=== PATIENT | female | born 1940 | race Caucasian/White ===

== ENCOUNTER → 2020-05-20 | Outpatient (CLI) | payer MEDICARE ==
--- NOTE | 2020-05-20 10:30 | RAD ---
EXAM: WRIST 3V RIGHT 05/20/2020 12:00 AM CLINICAL INDICATION:Fell this morning, injured right wrist COMPARISON:None TECHNIQUE:3 views of the right wrist FINDINGS:The bones are diffusely demineralized. There is a suspected minimally displaced fracture of the distal radial metaphysis along the posterior cortex, seen only on lateral view. No definite intra-articular extension. Alignment is normal. There is moderate joint space narrowing with subchondral sclerosis and large osteophytes at the first CMC joint. Mild dorsal soft tissue swelling. IMPRESSION: 1. Minimally displaced distal radial metaphyseal fracture along the posterior cortex. 2. Osteopenia. 3. Severe degenerative joint disease at the first CMC joint. Electronically signed by: Rani Carvalho MD (05/20/2020 10:27 AM) [id number]
== END ==
LOC: DXRAD 09:57
PROVIDERS: ATTEND Internal Medicine
DX: S59.201A Unspecified physeal fracture of lower end of radius, right arm, initial encounter for closed fracture (principal); M85.88 Other specified disorders of bone density and structure, other site; M18.9 Osteoarthritis of first carpometacarpal joint, unspecified; X58.XXXA Exposure to other specified factors, initial encounter; Y93.89 Activity, other specified; Y92.89 Other specified places as the place of occurrence of the external cause; Y99.8 Other external cause status
CPT/HCPCS: 73110

== ENCOUNTER 2021-04-29 17:40 | Emergency (ER) | payer MEDICARE ==
[~2021-04-29] VITALS: Ht 160 cm; Wt 54.0 kg
--- NOTE | 2021-04-29 18:01 | PHYS DOC ---
Past History Past Medical History: Arthritis, CVA, Hypertension, TIA General Adult EDM: Chief Complaint: NEURO SYMPTOMS/DEFICITS HPI: HPI: .. I don't know.. maybe I was a little off this morning when I got up.. But I am fine now....but my daughter said I should come tonight and get checked.. Patient is a 80 year old female who presents with above hx and complaints altered mental status. Patient pt. was at baseline yesterday was normal about 1800. When daughter checked on her today at about 1700hrs. felt her face was a little a symmetrical and may be speech off a "little bit". On arrival to the emergency department patient was asymptomatic. Patient does have significant history of previous TIAs and CVAs. Has had falls in the past. Patient did appear to have accelerated hypertension range of 215 / 100s. Patient denies any recent changes in meds. Does have some baseline dementia/Alzheimer's. She still lives independently. Patient normally follows with Dr. Reyna. There is some history patient is somewhat noncompliant of her hypertensive meds either by intention or forgetting to take them. Patient does have a history of some falls. Review of Systems: Review of Systems: Constitutional: Denies fever or chills Eyes: Denies change in visual acuity HENT: Denies nasal congestion or sore throat Respiratory: Denies cough or shortness of breath Cardiovascular: Denies chest pain or edema GI: Denies abdominal pain, nausea, vomiting, bloody stools or diarrhea : Denies dysuria Musculoskeletal: Denies back pain or joint pain Integument: Denies rash Neurologic: Denies headache, focal weakness or sensory changes Endocrine: Denies polyuria or polydipsia Lymphatic: Denies swollen glands Psychiatric: Denies depression or anxiety Family History: Family History: Noncontributory Current Medications: Current Meds: See nursing for home meds Allergies: Allergies: No known drug allergies Physical Exam: PE: Constitutional: no acute distress, non-toxic appearance. [] HENT: Normocephalic, atraumatic, bilateral external ears normal, oropharynx moist, no oral exudates, nose normal. [] Eyes: PERRLA, EOMI, conjunctiva normal, no discharge. [] Neck: Normal range of motion, no tenderness, supple, no stridor. [] Cardiovascular:Heart rate regular rhythm, no murmur. PMI to the left Lungs & Thorax: Bilateral breath sounds equal apex auscultation [] Abdomen: Bowel sounds normal, soft, no tenderness, no masses, no pulsatile masses. [] Skin: Warm, dry, no erythema, no rash. [] Back: No tenderness, no CVA tenderness. [] Extremities: No tenderness, no cyanosis, no clubbing, ROM intact, no edema. Arthritic changes Neurologic: Alert and oriented X 3, moves all extremities on request, has distal sensory, no focal deficits noted. Patient states she is at baseline. Daughter states she is at baseline. DTRs +2 patella and brachial. Action Installer equal. No drift. Psychologic: Affect normal, judgement normal, mood normal. [] EKG: EKG: My interpretation EKG shows a sinus rhythm at 76 bpm. Leftward axis. But no findings acute STEMI or contralateral changes [] Radiology/Procedures: Radiology/Procedures: [address] [address] IMAGING REPORT Signed PATIENT: DAVID KUNZ ACCOUNT: [id number] : 1940 LOCATION: ER AGE: 80 SEX: F EXAM STATUS: REG ER ORD. PHYSICIAN: LATASHA RUTHERFORD MD REASON: dyspnea PROCEDURE: CHEST PA & LATERAL XR CHEST 2V CLINICAL INDICATIONS: Dyspnea COMPARISON: None available. Findings: No acute lung infiltrate or pleural effusion or pulmonary edema or lung mass or pneumothorax is seen. The heart size, pulmonary vasculature, mediastinum and both kim are unremarkable. IMPRESSION: No acute radiographic abnormality is seen. Electronically signed by: Mervat Orozco MD (04/29/2021 7:34 PM) [id number] DICTATED AND SIGNED BY: MERVAT OROZCO MD DATE: 04/29/211932 CC: LATASHA RUTHERFORD MD; RAJ REYNA ~MTH0 0 [[address] [address] IMAGING REPORT Signed PATIENT: DAVID KUNZ ACCOUNT: [id number] : 1940 LOCATION: ER AGE: 80 SEX: F EXAM STATUS: REG ER ORD. PHYSICIAN: LATASHA RUTHERFORD MD REASON: mental status change, falls, nl yesterday 1830 hrs. PROCEDURE: CT HEAD AND CERVICAL SPINE WO CT Head W/O Contrast: History: Reason: mental status change, falls, nl yesterday 1830 hrs. / Spl. Instructions: / History: Comparison: none Axial images were obtained without contrast. The 2 mm density along the interhemispheric fissure on the left is consistent with an acute posterior parafalcine subdural hematoma. There is marked diffuse atrophy. There is no mass effect or hydrocephalus. There is an old lacunar infarct in the right basal ganglia. Mild, patchy periv entricular and subcortical white matter hypoattenuation is seen. There is no focal loss of andrade-white matter distinction to suggest acute ischemia, i.e. stroke. Impression: 1. Small posterior acute subdural hematoma. No mass effect. 3. Marked atrophy and mild chronic white matter changes and old periventricular infarct on the right. End impression CT C-Spine without contrast: Clinical History: Reason: mental status change, falls, nl yesterday 1830 hrs. / Spl. Instructions: / History: Technique: Axial helical images of the cervical spine were obtained without contrast, axial coronal and sagittal reconstruction was performed. Findings: There is no loss of vertebral body stature. There is no prevertebral soft tissue swelling. There is minimal degenerative retrolisthesis of C2 on C3 and C3 on C4 and grade 1 anterolisthesis of C4 on C5. The C1-C2 relationship is normal. The visualized osseous structures appear normal. Evaluation central canal is limited without contrast. There is diffuse disc osteophytic ridges and hypertrophy of the facets resulting in flattening of the thecal sac at multiple levels. There does not appear to be gross flattening cord. There is moderate narrowing of multiple neuroforamen. Impression: Marked chronic degenerative changes of the cervical spine with multilevel central and neuroforaminal stenosis. No acute findings. Clinical correlation s uggested. See CT head without contrast. End impression PQRS Compliance Statement: One or more of the following individualized dose reduction techniques were utilized for this examination: 1. Automated exposure control 2. Adjustment of the mA and/or kV according to patient size 3. Use of iterative reconstruction technique Electronically signed by: Johana Rubi III, MD (04/29/2021 7:16 PM) [facility] DICTATED AND SIGNED BY: JOHANA RUBI III, MD DATE: 04/29/211904 CC: LATASHA RUTHERFORD MD; RAJ REYNA ~MTH0 0 ][place] [address] IMAGING REPORT Signed PATIENT: DAVID KUNZ ACCOUNT: [id number] : 1940 LOCATION: ER AGE: 80 SEX: F EXAM STATUS: REG ER ORD. PHYSICIAN: LATASHA RUTHERFORD MD REASON: mental status change, falls, nl yesterday 1830 hrs. PROCEDURE: CT HEAD AND CERVICAL SPINE WO CT Head W/O Contrast: History: Reason: mental status change, falls, nl yesterday 1830 hrs. / Spl. Instructions: / History: Comparison: none Axial images were obtained without contrast. The 2 mm density along the interhemispheric fissure on the left is consistent with an acute posterior parafalcine subdural hematoma. There is marked diffuse atrophy. There is no mass effect or hydrocephalus. There is an old lacunar infarct in the right basal ganglia. Mild, patchy periventricular and subcortical white matter hypoattenuation is seen. There is no focal loss of andrade-white matter distinction to suggest acute ischemia, i.e. stroke. Impression: 1. Small posterior acute subdural hematoma. No mass effect. 3. Marked atrophy and mild chronic white matter changes and old periventricular infarct on the right. End impression CT C-Spine without contrast: Clinical History: Reason: mental status change, falls, nl yesterday 1830 hrs. / Spl. Instructions: / History: Technique: Axial helical images of the cervical spine were obtained without contrast, axial coronal and sagittal reconstruction was performed. Findings: There is no loss of vertebral body stature. There is no prevertebral soft tissue swelling. There is minimal degenerative retrolisthesis of C2 on C3 and C3 on C4 and grade 1 anterolisthesis of C4 on C5. The C1-C2 relationship is normal. The visualized osseous structures appear normal. Evaluation central canal is limited without contrast. There is diffuse disc osteophytic ridges and hypertrophy of the facets resulting in flattening of the thecal sac at multiple levels. There does not appear to be gross flattening cord. There is moderate narrowing of multiple neuroforamen. Impression: Marked chronic degenerative changes of the cervical spine with multilevel central and neuroforaminal stenosis. No acute findings. Clinical correlation suggested. See CT head without contrast. End impression PQRS Compliance Statement: One or more of the following individualized dose reduction techniques were utilized for this examination: 1. Automated exposure control 2. Adjustment of the mA and/or kV according to patient size 3. Use of iterative reconstruction technique Electronically signed by: Johana Rubi III, MD (04/29/2021 7:16 PM) [facility] DICTATED AND SIGNED BY: JOHANA RUBI III, MD DATE: 04/29/211904 CC: LATASHA RUTHERFORD MD; RAJ REYNA ~MTH0 0 Heart Score: C/O Chest Pain: N/A HEART Score for Chest Pain: HEART Score for Chest Pain Response (Comments) Value History Slighlty/Non-Suspicious 0 ECG Normal 0 Age > 65 2 Risk Factors 1 or 2 Risk Factors 1 Troponin < Normal Limit 0 Total 3 Risk Factors: Risk Factors: DM, Current or recent (<one month) smoker, HTN, HLP, family history of CAD, obesity. Risk Scores: Score 0 - 3: 2.5% MACE over next 6 weeks - Discharge Home Score 4 - 6: 20.3% MACE over next 6 weeks - Admit for Clinical Observation Score 7 - 10: 72.7% MACE over next 6 weeks - Early Invasive Strategies Course & Med Decision Making: Course & Med Decision Making Pertinent Labs and Imaging studies reviewed. (See chart for details) Initially daughter insistent patient [facility] only [facility]. [facility] Called back at 1945 hrs. advised unable to accept this pt. at this time. Neurology review of films suggested pt be admitted to a neuro telemetry at our facility and consider MRI in the morning. Control blood pressure. Patient did not require neurosurgery for acute intervention . Primay invention at this time would be medical stabilization of blood pressure. If a room became available they would accept.. After some time in the emergency department daughter and patient requested to be admitted at [facility]. Patient is case discussed with . Will transfer to [facility] - neuro. Possible MRI in am. Impression: 1. Hx of alter mental status since 1800 yesterday 2. Hx of falls 3. Hx.of Dementia 4. Accelerated Hypertension ( Hx. non compliance with meds) 5. Small posterior acute subdural hematoma- - no mass effect 6. Marked atrophy and white mater changes. [] Dragon Disclaimer: Dragkeven Disclaimer: This electronic medical record was generated, in whole or in part, using a voice recognition dictation system. Departure Departure: Referrals: RAJ REYNA (PCP) Saritha Disclaimer This chart was dictated in whole or in part using Voice Recognition software in a busy, high-work load, and often noisy Emergency Department environment. It may contain unintended and wholly unrecognized errors or omissions. LATASHA RUTHERFORD MD April 29, 2021 18:01
--- NOTE | 2021-04-29 18:17 | EKG ---
[address] [address] Test Date: 2021-04-29 Test Time: 18:10:45 Pat Name: DAVID KUNZ Department: Room: Gender: F Fiction Writer: ALETA : 1940 Requested By: LATASHA RUTHERFORD Order Number: [id number] Reading MD: Christopher Gardiner Measurements Intervals [place] Rate: 76 P: 47 DC: 206 QRS: -23 QRSD: 78 T: 42 QT: 394 QTc: 448 Interpretive Statements SINUS RHYTHM LEFTWARD AXIS Electronically Signed On 05-02-2021 15:28:58 CDT by Christopher Gardiner
[2021-04-29 18:40] LABS: CALCIUM 8.7 mg/dL (8.5-10.1); CREATININE 0.9 mg/dL (0.6-1.0); GFR 60.1; POTASSIUM 3.9 mmol/L (3.5-5.1)
[2021-04-29 18:50] LABS: BASO % 1 % (0-3); EOS # 0.1 x10^3/uL (0.0-0.7); EOS % 2 % (0-3); HEMATOCRIT 35.7 % (36.0-47.0); HEMOGLOBIN 11.9 g/dL (12.0-15.5); LYMPH # 2.6 x10^3/uL (1.0-4.8); LYMPH % 42 % (24-48); MEAN CORPUSCULAR HEMOGLOBIN 32 pg (25-35); MEAN CORPUSCULAR HGB CONC 33 g/dL (31-37); MEAN CORPUSCULAR VOLUME 97 fL (79-100); MONO # 0.5 x10^3/uL (0.0-1.1); MONO % 7 % (0-9); NEUT % 48 % (31-73); PLATELET COUNT 173 x10^3/uL (140-400); RED CELL DISTRIBUTION WIDTH 12.8 % (11.5-14.5); WHITE BLOOD COUNT 6.2 x10^3/uL (4.0-11.0)
[2021-04-29 18:54] LABS: MAGNESIUM 2.2 mg/dL (1.8-2.4)
--- NOTE | 2021-04-29 19:18 | RAD ---
CT Head W/O Contrast: History: Reason: mental status change, falls, nl yesterday 1830 hrs. / Spl. Instructions: / Histor y: Comparison: none Axial images were obtained without contrast. The 2 mm density along the interhemispheric fissure on the left is consistent with an acute posterior parafalcine subdural hematoma. There is marked diffuse atrophy. There is no mass effect or hydrocephalus. There is an old lacunar i nfarct in the right basal ganglia. Mild, patchy periventricular and subcortical white matter hypoatte nuation is seen. There is no focal loss of andrade-white matter distinction to suggest acute ischemia, i.e. stroke. Impression: 1. Small posterior acute subdural hematoma. No mass effect. 3. Marked atrophy and mild chronic white matter changes and old periventricular infarct on the right. End impression CT C-Spine without contrast: Clinical History: Reason: mental status change, falls, nl yesterday 1830 hrs. / Spl. Instructions: / History: Technique: Axial helical images of the cervical spine were obtained without contrast, axial coronal and sagittal reconstruction was performed. Findings: There is no loss of vertebral body stature. There is no prevertebral soft tissue swelling. There is minimal degenerative retrolisthesis of C2 on C3 and C3 on C4 and grade 1 anterolisthesis of C4 on C5. The C1-C2 relationship is normal. The visualized osseous structures appear normal. Evaluation centra l canal is limited without contrast. There is diffuse disc osteophytic ridges and hypertrophy of the facets resulting in flattening of the thecal sac at multiple levels. There does not appear to be gross flattening cord. There is moderate narrowing of multiple neuroforamen. Impression: Marked chronic degenerative changes of the cervical spine with multilevel central and neuroforaminal stenosis. No acute findings. Clinical correlation suggested. See CT head without contrast. End impression PQRS Compliance Statement: One or more of the following individualized dose reduction techniques were utilized for this examinat ion: 1. Automated exposure control 2. Adjustment of the mA and/or kV according to patient size 3. Use of iterative reconstruction technique Electronically signed by: Jack Hill III, MD (04/29/2021 7:16 PM) [facility]
--- NOTE | 2021-04-29 19:37 | RAD ---
XR CHEST 2V CLINICAL INDICATIONS: Dyspnea COMPARISON: None available. Findings: No acute lung infiltrate or pleural effusion or pulmonary edema or lung mass or pneumothora x is seen. The heart size, pulmonary vasculature, mediastinum and both kim are unremarkable. IMPRESSION: No acute radiographic abnormality is seen. Electronically signed by: Herman Orozco MD (04/29/2021 7:34 PM) [id number]
[2021-04-29 19:44] LABS: BILIRUBIN,URINE NEG (NEG); CLARITY,URINE HAZY; COLOR,URINE YELLOW; GLUCOSE,URINE NEG (NEG); NITRITE,URINE NEG (NEG); RBC,URINE 0 /HPF (0-2); UROBILINOGEN,URINE 0.2 mg/dL (0.2 mg/dL); WBC,URINE RARE /HPF (0-4)
[2021-04-29 19:45] LABS: BACTERIA,URINE 0 /HPF (0-FEW); SQUAMOUS EPITHELIAL CELL,UR OCC /LPF
[2021-04-29] MEDS ORDERED: cloNIDine TTS-2 1 PATCH PATCH TD ONE (19:45)
[2021-04-29] MEDS ORDERED: cloNIDine HCL 0.1 MG TABLET PO ONE (19:45)
[2021-04-29 19:51] LABS: AMPHETAMINE/METHAMPHETAMINE NEG (NEG); BARBITURATES NEG (NEG); BENZODIAZEPINES NEG (NEG); CANNABINOIDS NEG (NEG); COCAINE NEG (NEG); METHADONE NEG (NEG); OPIATES NEG (NEG); PHENCYCLIDINE NEG (NEG)
[2021-04-29] MEDS ORDERED: LABETALOL 20 MG/4 ML DISP.SYRIN. IVP ONE (20:15)
[2021-04-29 22:00] VITALS: BP 151/101
== END 2021-04-29 22:08 | disposition short-term general hospital (02) ==
LOC: ER 17:40
DX: R41.82 Altered mental status, unspecified (principal); I10 Essential (primary) hypertension; F03.90 Unspecified dementia, unspecified severity, without behavioral disturbance, psychotic disturbance, mood disturbance, and anxiety
CPT/HCPCS: 36415; 70450; 71046; 72125; 80048; 80307; 81001; 82140; 82550; 82947; 83735; 83880; 84484; 85025; 85379; 85610; 85730; 87040; 87086; 93005; 96374; 99285; G0480; J3490